=== PATIENT | male | born 1985 | race Caucasian/White ===

== ENCOUNTER 2016-12-29 14:50 | Emergency (ER) | payer OTHER ==
[~2016-12-29] VITALS: Ht 185.4 cm; Wt 107.0 kg
[2016-12-29] MEDS ORDERED: IOHEXOL 350 MG/ML 10 ML VIAL (for RAD DIAG) IVCONTRAST ONE (14:51)
[2016-12-29 14:52] VITALS: BP 165/100; PULSE 47; RESP 14; TEMP 98.7; O2SAT 98
--- NOTE | 2016-12-29 15:47 | PD ---
Physical Exam Date Seen by Provider: Dec 29, 2016 Time Seen by Provider: 15:42 Narrative 31-year-old white male presents to emergency Department with complaints of right inguinal hernia pain. The patient states that a few months ago he had a right inguinal herniorrhaphy at [facility] by Dr. Johnson. He states that he's been having discomfort in the area since the surgery. The patient states he had a filling of the incision approximately a week ago and was seen at urgent care. He was referred back to his surgeon who had advised him to return back to full duty. He states that he has not because he did not feel comfortable. He noticed increasing pain while standing at the table today. He's here for evaluation. No fever chills. No nausea vomiting. The wound does not open any larger. Pain is moderate. Vital signs reviewed. Pt. waiting for bed placement. Data Data Last Documented VS Vital Signs Date Time Temp Pulse Resp B/P (MAP) Pulse Ox O2 Delivery O2 Flow Rate FiO2 12/29/16 14:52 98.7 47 14 165/100 (121) 98 MDM Medical Record Reviewed: No Supervised Visit with KARYN: Agustin Mcdaniel Dec 29, 2016 15:47
[2016-12-29] MEDS ORDERED: SODIUM CHLORIDE 0.9% FLUSH 10 ML FLUSH IV FLUSH PRN (17:45)
--- NOTE | 2016-12-29 17:59 | PD ---
HPI Chief Complaint: Lump, Cyst, Hernia Time Seen by Provider: 17:09 Travel History International Travel<30 days: No Contact w/Intl Traveler<30days: No Traveled to known affect area: No History of Present Illness HPI 31-year-old male presents to the emergency room should of postsurgical pain. Patient had hernia repair October [address] Johnson at [facility]. States he was doing well until 2 weeks ago and his incision site opened. He had a little bit of bloody discharge but denies any purulence. He went to an urgent care center and was given bacitracin. Even followed up with his surgeon who reassured the patient and told him to resume normal activity. Patient states they're the past week he has had worsening pain and today while standing for 30 minutes and one spot he developed sharp pain unlike any has had before over the surgical site. Patient is anxious about what could be causing pain. He denies fever, chills, nausea, vomiting. He has had slight, intermittent diarrhea over the past week that has been getting better every day. Denies any other medical problems. [facility] Social History Tobacco Use: No Allergies-Medications (Allergen,Severity, Reaction): Coded Allergies: No Known Allergies (Unverified , 12/29/16) Review of Systems Except as stated in HPI: all other systems reviewed are Neg Physical Exam Narrative GENERAL: Well-nourished, well-developed male in no acute distress. Afebrile. Ambulatory. SKIN: Focused skin assessment warm/dry. Well-healed, noninfected appearing surgical scar to the right pelvic region. HEAD: Normocephalic. EYES: No scleral icterus. No injection or drainage. NECK: Supple, trachea midline. No JVD or lymphadenopathy. CARDIOVASCULAR: Regular rate and rhythm without murmurs, gallops, or rubs. RESPIRATORY: Breath sounds equal bilaterally. No accessory muscle use. GASTROINTESTINAL: Abdomen soft, nondistended. No palpable masses. No guarding. Very mild tenderness to palpation of the right pelvic region. Data Data Last Documented VS Vital Signs Date Time Temp Pulse Resp B/P (MAP) Pulse Ox O2 Delivery O2 Flow Rate FiO2 12/29/16 14:52 98.7 47 14 165/100 (121) 98 Orders Orders Cbc No Diff, Includes Plts (12/29/16 17:45) Basic Metabolic Panel (Bmp) (12/29/16 17:45) Ct Abd/Pel W Iv Contrast(Rout) (12/29/16 17:45) Iv Access Insert/Monitor (12/29/16 17:45) Sodium Chloride 0.9% Flush (Ns Flush) (12/29/16 17:45) Iohexol 350 Inj (Omnipaque 350 Inj) (12/29/16 14:51) Labs Laboratory Tests Test 12/29/16 18:20 White Blood Count 7.0 TH/MM3 Red Blood Count 5.21 MIL/MM3 Hemoglobin 14.9 GM/DL Hematocrit 42.6 % Mean Corpuscular Volume 81.9 FL Mean Corpuscular Hemoglobin 28.6 PG Mean Corpuscular Hemoglobin Concent 34.9 % Red Cell Distribution Width 13.7 % Platelet Count 172 TH/MM3 Mean Platelet Volume 7.6 FL Blood Urea Nitrogen 16 MG/DL Creatinine 1.27 MG/DL Random Glucose 89 MG/DL Calcium Level 8.6 MG/DL Sodium Level 139 MEQ/L Potassium Level 3.9 MEQ/L Chloride Level 105 MEQ/L Carbon Dioxide Level 30.0 MEQ/L Anion Gap 4 MEQ/L Estimat Glomerular Filtration Rate 65 ML/MIN MDM Medical Decision Making Medical Screen Exam Complete: Yes Emergency Medical Condition: Yes Medical Record Reviewed: Yes Differential Diagnosis Postsurgical pain, hernia, abscess Narrative Course 31-year-old male presents to the emergency room for evaluation of postsurgical pain. Patient had hernia repair October [address] Johnson in [place]. States he was doing well until about 2 weeks ago when the surgical scar opened. He had some bloody discharge but denies any purulence. States since then he has had intermittent dull, aching pain. Today he developed severe, sharp pain which concerned him and brought him to the ED. Patient appears anxious about causes of pain. He was reassured and told it is likely postsurgical changes. CBC and BMP are unremarkable. CT abdomen and pelvis was ordered to evaluate for new hernia. It shows mild posterior cervical changes in the right inguinal region with mild induration and the adjacent fat without recurrent hernia or hematoma. Patient reassured and discharged with instructions to follow-up with his surgeon. He has an appointment January 06. Told to return sooner for any worsening symptoms or obvious masses. He understands and agrees to plan. Diagnosis Primary Impression: Postoperative pain Referrals: General Surgeon Additional Instructions: Rest and drink plenty of fluids. Take ibuprofen with food as directed, as needed for pain. Follow-up with your surgeon. Return to the emergency room for worsening symptoms. Disposition: 01 DISCHARGE HOME Condition: Stable Carley Edwards Dec 29, 2016 17:58
[2016-12-29 18:38] LABS: HEMATOCRIT 42.6 % (39.0-51.0); MEAN CELL VOLUME 81.9 FL (80.0-100.0); MEAN CORPUSCULAR HEMOGLOBIN 28.6 PG (27.0-34.0); MEAN CORPUSCULAR HGB CONC 34.9 % (32.0-36.0); PLATELET COUNT 172 TH/MM3 (150-450); RED BLOOD COUNT 5.21 MIL/MM3 (4.50-5.90); RED CELL DISTRIBUTION WIDTH 13.7 % (11.6-17.2); REVIEW FLAG FINAL
--- NOTE | 2016-12-29 18:53 | RADRPT ---
EXAM DATE/TIME: 12/29/2016 18:34 [facility] COMPARISON: No previous studies available for comparison. INDICATIONS : Right groin pain. Post op hernia surgery. IV CONTRAST: 95 cc Omnipaque 350 (iohexol) IV ORAL CONTRAST: No oral contrast ingested. RADIATION DOSE: 21.69 CTDIvol (mGy) MEDICAL HISTORY : Hernia, inguinal. SURGICAL HISTORY : Inguinal hernia repair. ENCOUNTER: Initial ACUITY: 2 days PAIN SCALE: 7/10 LOCATION: Right groin TECHNIQUE: Volumetric scanning of the abdomen and pelvis was performed. Using automated exposure control and ad justment of the mA and/or kV according to patient size, radiation dose was kept as low as reasonably achievable to obtain optimal diagnostic quality images. DICOM format image data is available electro nically for review and comparison. FINDINGS: LOWER LUNGS: The visualized lower lungs are clear. LIVER: Homogeneous density without lesion. There is no dilation of the biliary tree. No calcified gallston es. SPLEEN: Normal size without lesion. PANCREAS: Within normal limits. KIDNEYS: Normal in size and shape. There is no mass, stone or hydronephrosis. ADRENAL GLANDS: Within normal limits. VASCULAR: There is no aortic aneurysm. BOWEL/MESENTERY: The stomach, small bowel, and colon demonstrate no acute abnormality. There is no free intraperitone al air or fluid. ABDOMINAL WALL: Within normal limits. RETROPERITONEUM: There is no lymphadenopathy. BLADDER: No wall thickening or mass. REPRODUCTIVE: Within normal limits. INGUINAL: There is no lymphadenopathy or hernia. A there are mild postsurgical changes in the right inguinal re gion with mild increased soft tissue density in the subcutaneous fat adjacent to the inguinal ring. MUSCULOSKELETAL: Within normal limits for patient age. CONCLUSION: 1. Mild postsurgical changes in the right inguinal region with mild induration of the adjacent fat. 2. No recurrent hernia or hematoma. Nicola Bueno MD on December 29, 2016 at 18:49 Board Certified Radiologist. This report was verified electronically.
[2016-12-29 18:57] LABS: POTASSIUM 3.9 MEQ/L (3.5-5.1)
== END 2016-12-29 19:43 | disposition home or self-care (01) ==
LOC: NEPD 14:50
DX: G89.18 Other acute postprocedural pain (principal); R19.7 Diarrhea, unspecified
CPT/HCPCS: 74177; 80048; 85027; 99285; Q9967

== ENCOUNTER 2017-01-10 20:35 | Emergency (ER) | payer MEDICAID, OTHER ==
[~2017-01-10] VITALS: Ht 185.4 cm; Wt 105.0 kg
[2017-01-10 20:37] VITALS: BP 140/42; PULSE 88; RESP 16; TEMP 98.7; O2SAT 96
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
== END 2017-01-10 21:32 | disposition home or self-care (01) ==
LOC: NEPD 20:35
DX: S01.81XA Laceration without foreign body of other part of head, initial encounter (principal); Y04.0XXA Assault by unarmed brawl or fight, initial encounter
CPT/HCPCS: 12011